=== PATIENT | male | born 1960 | race Caucasian/White ===

== ENCOUNTER → 2017-12-29 14:34 | Outpatient (CLI) | payer OTHER, SELFPAY ==
--- NOTE | 2017-12-29 14:55 | RAD_ITS ---
STUDY: X-RAY - LUMBAR SPINE REASON FOR EXAM: Male, 57 years old. Low back pain TECHNIQUE: 3 view(s) of the lumbar spine were obtained. COMPARISON: 12/23/2013 FINDINGS: Normal lumbar lordosis. There is no substantial scoliosis. There is a normal alignment of the vertebrae. There is multilevel endplate spondylosis of the lumbar vertebrae. There is multi-level degenerative disc disease with multi-level disc space narrowing. There is no demonstrated fracture. The soft tissue structures are unremarkable. RAD/Lumbar Spine 2 or 3 Views IMPRESSION: Degenerative changes of the spine, as detailed above. Electronically Signed: Lul Ontiveros DO at 15:27 EST Tel , Service support ,
== END ==
PROVIDERS: Family Provider Family Medicine Geriatric Medicine; PCP Family Medicine Geriatric Medicine; Visit Provider Family Medicine Geriatric Medicine
DX: M47.896 Other spondylosis, lumbar region (principal); M51.36 Other intervertebral disc degeneration, lumbar region
CPT/HCPCS: 72100

== ENCOUNTER → 2018-10-26 10:42 | Outpatient (CLI) | payer OTHER, SELFPAY ==
[2018-10-26 13:01] LABS: Absolute Lymphocyte Count 1.74 X10^3/ul (0.83-4.51); Absolute Neutrophil Count 2.1 X10^3/uL (2.0-7.7); Basophil# 0.01 X10^3/uL; Basophil% 0.2 % (0-1); Eosinophil# 0.14 X10^3/uL; Eosinophils% 3.1 % (0-5); Hematocrit 39.8 % (40-54); Hemoglobin 12.7 g/dl (13.0-16.5); Lymphocyte # 1.74 X10^3/ul (4.0); Lymphocyte % 38.4 % (19-41); Mean Corp Hgb Conc 31.9 g/gl (32-36); Mean Corpuscular Hgb 30.4 pg (27.0-32.0); Mean Corpuscular Volume 95.2 fL (80-94); Mean Platelet Vol. 9.4 fl (6.2-12.0); Monocyte# 0.54 X10^3/uL; Monocyte% 11.9 % (0-10); Neutrophil # 2.09 X10^3/uL (2.7-7.7); Neutrophil % 46.2 % (47-70); Platelet Count 246 K/mm3 (150-450); RBC Distribution Width SD 44.6 fl (35.1-43.9); Red Blood Count 4.18 M/mm3 (4.6-6.2); White Blood Count 4.5 K/mm3 (4.4-11.0)
[2018-10-26 13:05] LABS: POSITIVE COUNT NO; POSITIVE DIFFERENTIAL NO; POSITIVE MORPHOLOGY NO
[2018-10-26 13:29] LABS: ALB/GLOB Ratio 1.1 RATIO (0.9-2.4); AST(SGOT) 23 U/L (15-37); Alanine Aminotransfer ALT/SGPT 28 U/L (16-61); Albumin, Serum 3.5 g/dL (3.2-5.0); Alkaline Phosphatase 86 U/L (45-117); Anion Gap 11 (5-15); BUN 11 mg/dL (7-18); BUN/Creat Ratio 8.6 RATIO (10-20); Calcium,Total 8.5 mg/dL (8.5-10.1); Chloride 104 mmol/L (98-107); Creatinine, Serum 1.28 mg/dL (0.70-1.30); EST Glomerular Filtration Rate 61 mL/min (>60); Est Glom Filt Rate - Afr Amer 74 mL/min (>60); Globulin 3.2 g/dL (2.2-4.2); Glucose 77 mg/dL (74-106); PSA,Total - Annual Screen 0.77 ng/mL (0.00-4.00); Protein, Total 6.7 g/dL (6.4-8.2); Sodium Level 142 mmol/L (136-145)
== END ==
PROVIDERS: Family Provider Family Medicine Geriatric Medicine; PCP Family Medicine Geriatric Medicine; Visit Provider Family Medicine Geriatric Medicine
DX: I10 Essential (primary) hypertension (principal); Z12.5 Encounter for screening for malignant neoplasm of prostate
CPT/HCPCS: 36415; 80053; 84153; 84443; 85025; G0103

== ENCOUNTER → 2019-11-01 09:27 | Outpatient (CLI) | payer OTHER, SELFPAY ==
[2019-04-23 11:01] VITALS: BMI 28.5
[2019-11-01 12:42] LABS: Absolute Neutrophil Count 4.4 X10^3/uL (2.0-7.7); Basophil# 0.02 X10^3/uL; Basophil% 0.3 % (0-1); Eosinophil# 0.13 X10^3/uL; Eosinophils% 1.8 % (0-5); Hemoglobin 14.7 g/dL (13.0-16.5); Mean Corp Hgb Conc 32.7 g/dL (32-36); Mean Corpuscular Hgb 31.1 pg (27.0-32.0); Mean Corpuscular Volume 95.1 fL (80-94); Mean Platelet Vol. 9.8 fl (6.2-12.0); Monocyte# 0.54 X10^3/uL; Monocyte% 7.7 % (0-10); NRBC Flagged by Analyzer 0 % (0-5); Neutrophil # 4.43 X10^3/uL (2.7-7.7); Neutrophil % 62.9 % (47-70); Platelet Count 254 K/mm3 (150-450); RBC Distribution Width CV 12.6 % (11.6-14.6); Red Blood Count 4.73 M/mm3 (4.6-6.2)
[2019-11-01 12:55] LABS: ALB/GLOB Ratio 1.2 RATIO (0.9-2.4); AST(SGOT) 31 U/L (15-37); Alanine Aminotransfer ALT/SGPT 33 U/L (16-61); Alkaline Phosphatase 86 U/L (45-117); Anion Gap 5 (5-15); BUN 18 mg/dL (7-18); Calcium,Total 9.1 mg/dL (8.5-10.1); Chloride 109 mmol/L (98-107); Creatinine, Serum 1.29 mg/dL (0.70-1.30); EST Glomerular Filtration Rate 60 mL/min (>60); Est Glom Filt Rate - Afr Amer 73 mL/min (>60); Globulin 3.2 g/dL (2.2-4.2); Glucose 93 mg/dL (74-106); PSA,Total - Annual Screen 1.04 ng/mL (0.00-4.00); Potassium 4.7 mmol/L (3.5-5.1); Protein, Total 7.2 g/dL (6.4-8.2); Sodium Level 142 mmol/L (136-145)
== END ==
PROVIDERS: Family Provider Family Medicine Geriatric Medicine; PCP Family Medicine Geriatric Medicine; Visit Provider Family Medicine Geriatric Medicine
DX: I10 Essential (primary) hypertension (principal); Z12.5 Encounter for screening for malignant neoplasm of prostate
CPT/HCPCS: 36415; 80053; 84153; 84443; 85025; G0103

== ENCOUNTER → 2020-06-28 15:00 | Outpatient (CLI) | payer BC, SELFPAY ==
[2020-06-09 13:22] VITALS: BMI 29.3
--- NOTE | 2020-06-28 15:03 | ECHOD_ITS ---
Reason For Study: PHTN Procedure This was a 2D Doppler, Color Flow transthoracic echocardiogram. Exam performed in department. Left Ventricle Normal size and thickness. The estimated ejection fraction is 65 %. Stage 1 diastolic dysfunction. No regional wall motion abnormalities noted. Right Ventricle Normal size and thickness. Normal systolic function. Atria Normal left atrium. Normal right atrium. Normal atrial septum. Mitral Valve The mitral valve is structurally normal. No prolapse or stenosis seen. Mild (1+) mitral valve insufficiency. Tricuspid Valve Normal tricuspid valve. Trivial tricuspid valve insufficiency. Unable to estimate RV systolic pressure due to insufficient tricuspid regurgitant envelope. Aortic Valve Normal aortic valve. Trisinus/trileaflet aortic valve. Pulmonic Valve Normal pulmonic valve. Great Vessels Normal aortic root. Normal arch. Normal inferior vena cava. Inferior vena cava collapse with sniff. Pericardium/Pleural No pericardial effusion. MMode/2D Measurements & Calculations LVIDd: 5.0 cm IVSd: 1.1 cm Ao root diam: 3.7 cm LVIDs: 3.6 cm LVPWd: 1.1 cm RVDd: 2.9 cm FS: 27.7 % LAV(MOD-bp): 73.5 ml LVAd ap4: 36.8 cm2 SV(MOD-sp4): 69.8 ml LAV(MOD-bp) Indexed: 30.7 ml/m2 EDV(MOD-sp4): 126.8 ml LAV(MOD-sp2): 102.4 ml EDV(sp4-el): 132.9 ml LAV(MOD-sp4): 54.0 ml LVAs ap4: 21.8 cm2 ESV(MOD-sp4): 57.0 ml ESV(sp4-el): 58.8 ml EF(MOD-sp4): 55.1 % EF(sp4-el): 55.8 % SV(sp4-el): 74.1 ml LA A4 area: 18.9 cm2 LA dimension(2D): 4.2 cm RA A4 area: 17.1 cm2 Time Measurements MV dec time: 0.12 sec Doppler Measurements & Calculations MV E max amadeo: 43.2 cm/sec Lat Peak E' Amadeo: 8.9 cm/sec Med Peak E' Amadeo: 6.8 cm/sec MV A max amadeo: 44.8 cm/sec E/E' lat: 4.9 E/E' med: 6.4 MV E/A: 0.96 Ao V2 max: 111.7 cm/sec LV V1 max: 106.3 cm/sec PA V2 max: 75.9 cm/sec Ao max P.0 mmHg LV V1 max P.5 mmHg Interpretation Summary The estimated ejection fraction is 65 %. Stage 1 diastolic dysfunction. Mild (1+) mitral valve insufficiency. Trivial tricuspid valve insufficiency. Compared to echo report dated 11/28/2015, no apprecialbe changes noted. Ordering Physician: Cornelius Lea Referring Physician: MARY PEARL Performed By: Melissa Webster, VNICENZO, RVT
== END ==
LOC: CVS 15:03
PROVIDERS: PCP Family Medicine Geriatric Medicine; Referring Provider Internal Medicine Cardiovascular Disease; Visit Provider Internal Medicine Cardiovascular Disease
DX: I27.20 Pulmonary hypertension, unspecified (principal); I45.10 Unspecified right bundle-branch block; I10 Essential (primary) hypertension; E78.5 Hyperlipidemia, unspecified
CPT/HCPCS: 93306

== ENCOUNTER → 2020-11-02 09:30 | Outpatient (CLI) | payer BC, SELFPAY ==
[2020-06-09 13:22] VITALS: BMI 29.3
[2020-11-02 12:45] LABS: Absolute Lymphocyte Count 1.83 X10^3/uL (0.83-4.51); Basophil# 0.03 X10^3/uL; Basophil% 0.5 % (0-1); Eosinophil# 0.11 X10^3/uL; Hematocrit 42.7 % (40-54); Hemoglobin 13.6 g/dL (13.0-16.5); Lymphocyte # 1.83 X10^3/ul (4.0); Mean Corp Hgb Conc 31.9 g/dL (32-36); Mean Corpuscular Hgb 30.6 pg (27.0-32.0); Mean Platelet Vol. 9.3 fl (6.2-12.0); Monocyte# 0.55 X10^3/uL; Monocyte% 9.9 % (0-10); NRBC Flagged by Analyzer 0 % (0-5); Neutrophil # 3.01 X10^3/uL (2.7-7.7); Neutrophil % 54.4 % (47-70); Platelet Count 275 K/mm3 (150-450); RBC Distribution Width CV 12.6 % (11.6-14.6); RBC Distribution Width SD 44.4 fl (35.1-43.9); Red Blood Count 4.45 M/mm3 (4.6-6.2); White Blood Count 5.5 K/mm3 (4.4-11.0)
[2020-11-02 13:14] LABS: ALB/GLOB Ratio 1.2 RATIO (0.9-2.4); AST(SGOT) 28 U/L (15-37); Alanine Aminotransfer ALT/SGPT 40 U/L (16-61); Albumin, Serum 3.8 g/dL (3.2-5.0); Alkaline Phosphatase 90 U/L (45-117); Anion Gap 6 (5-15); BUN 16 mg/dL (7-18); BUN/Creat Ratio 13.6 RATIO (10-20); Calcium,Total 8.7 mg/dL (8.5-10.1); Chloride 108 mmol/L (98-107); Creatinine, Serum 1.18 mg/dL (0.70-1.30); EST Glomerular Filtration Rate 67 mL/min (>60); Est Glom Filt Rate - Afr Amer 81 mL/min (>60); Globulin 3.1 g/dL (2.2-4.2); Glucose 77 mg/dL (74-106); Potassium 3.9 mmol/L (3.5-5.1); Protein, Total 6.9 g/dL (6.4-8.2); Sodium Level 140 mmol/L (136-145); Thyroid Stim Hormone (TSH) 1.28 uIU/mL (0.358-3.74)
== END ==
PROVIDERS: PCP Family Medicine Geriatric Medicine; Visit Provider Family Medicine Geriatric Medicine
DX: I10 Essential (primary) hypertension (principal); Z12.5 Encounter for screening for malignant neoplasm of prostate
CPT/HCPCS: 36415; 80053; 84153; 84443; 85025; G0103

== ENCOUNTER → 2021-11-08 08:51 | Outpatient (CLI) | payer BC, SELFPAY ==
[2021-11-08 12:06] LABS: Absolute Lymphocyte Count 2.25 X10^3/uL (0.83-4.51); Absolute Neutrophil Count 2.8 X10^3/uL (2.0-7.7); Basophil# 0.03 X10^3/uL; Basophil% 0.5 % (0-1); Eosinophil# 0.16 X10^3/uL; Eosinophils% 2.7 % (0-5); Hemoglobin 13.8 g/dL (13.0-16.5); Lymphocyte # 2.25 X10^3/ul (0.83-4.51); Lymphocyte % 38.6 % (19-41); Mean Corp Hgb Conc 32.9 g/dL (32-36); Mean Corpuscular Hgb 31.2 pg (27.0-32.0); Mean Corpuscular Volume 94.8 fL (80-94); Mean Platelet Vol. 9.5 fl (6.2-12.0); Monocyte% 10.3 % (0-10); NRBC Flagged by Analyzer 0 % (0-5); Neutrophil # 2.78 X10^3/uL (2.7-7.7); Neutrophil % 47.7 % (47-70); Platelet Count 298 K/mm3 (150-450); RBC Distribution Width CV 12.8 % (11.6-14.6); Red Blood Count 4.43 M/mm3 (4.6-6.2); White Blood Count 5.8 K/mm3 (4.4-11.0)
[2021-11-08 12:28] LABS: ALB/GLOB Ratio 1.1 RATIO (0.9-2.4); AST(SGOT) 27 U/L (15-37); Alanine Aminotransfer ALT/SGPT 41 U/L (16-61); Albumin, Serum 3.8 g/dL (3.2-5.0); Alkaline Phosphatase 86 U/L (45-117); Anion Gap 5 (5-15); BUN 17 mg/dL (7-18); BUN/Creat Ratio 13.3 RATIO (10-20); Calcium,Total 8.8 mg/dL (8.5-10.1); Chloride 106 mmol/L (98-107); Creatinine, Serum 1.28 mg/dL (0.70-1.30); EST Glomerular Filtration Rate 61 mL/min (>60); Est Glom Filt Rate - Afr Amer 73 mL/min (>60); Globulin 3.6 g/dL (2.2-4.2); Glucose 74 mg/dL (74-106); PSA,Total - Annual Screen 0.85 ng/mL (0.00-4.00); Potassium 4.1 mmol/L (3.5-5.1); Protein, Total 7.4 g/dL (6.4-8.2); Sodium Level 140 mmol/L (136-145); Thyroid Stim Hormone (TSH) 2.03 uIU/mL (0.358-3.74)
== END ==
PROVIDERS: PCP Family Medicine Geriatric Medicine; Visit Provider Family Medicine Geriatric Medicine
DX: I10 Essential (primary) hypertension (principal); Z12.5 Encounter for screening for malignant neoplasm of prostate
CPT/HCPCS: 36415; 80053; 84153; 84443; 85025; G0103

== ENCOUNTER → 2022-12-09 | Outpatient (CLI) | payer MEDICAID, SELFPAY ==
[2022-12-09 17:52] LABS: Absolute Lymphocyte Count 1.78 X10^3/uL (0.83-4.51); Absolute Neutrophil Count 3.6 X10^3/uL (2.0-7.7); Basophil# 0.01 X10^3/uL; Basophil% 0.2 % (0-1); Eosinophil# 0.08 X10^3/uL; Eosinophils% 1.4 % (0-5); Hematocrit 41.8 % (40-54); Hemoglobin 13.5 g/dL (13.0-16.5); Lymphocyte # 1.78 X10^3/ul (0.83-4.51); Lymphocyte % 30.2 % (19-41); Mean Corp Hgb Conc 32.3 g/dL (32-36); Mean Corpuscular Hgb 30.3 pg (27.0-32.0); Mean Corpuscular Volume 93.9 fL (80-94); Mean Platelet Vol. 9.3 fl (6.2-12.0); Monocyte# 0.44 X10^3/uL; Monocyte% 7.5 % (0-10); NRBC Flagged by Analyzer 0 % (0-5); Neutrophil # 3.58 X10^3/uL (2.7-7.7); Neutrophil % 60.5 % (47-70); Platelet Count 269 K/mm3 (150-450); RBC Distribution Width CV 12.7 % (11.6-14.6); RBC Distribution Width SD 43.7 fl (35.1-43.9); Red Blood Count 4.45 M/mm3 (4.6-6.2); White Blood Count 5.9 K/mm3 (4.4-11.0)
[2022-12-09 18:13] LABS: Vitamin D,25 Hydroxy 56.4 ng/mL
[2022-12-09 18:15] LABS: ALB/GLOB Ratio 1.1 RATIO (0.9-2.4); AST(SGOT) 29 U/L (15-37); Alanine Aminotransfer ALT/SGPT 40 U/L (16-61); Albumin, Serum 3.8 g/dL (3.2-5.0); Alkaline Phosphatase 82 U/L (45-117); Anion Gap 5 (5-15); BUN 21 mg/dL (7-18); BUN/Creat Ratio 17.2 RATIO (10-20); Calcium,Total 8.8 mg/dL (8.5-10.1); Chloride 109 mmol/L (98-107); Creatinine, Serum 1.22 mg/dL (0.70-1.30); EST Glomerular Filtration Rate 64 mL/min (>60); Est Glom Filt Rate - Afr Amer 77 mL/min (>60); Globulin 3.4 g/dL (2.2-4.2); Glucose 109 mg/dL (74-106); PSA,Total - Annual Screen 0.98 ng/mL (0.00-4.00); Potassium 3.8 mmol/L (3.5-5.1); Protein, Total 7.2 g/dL (6.4-8.2); Sodium Level 141 mmol/L (136-145); Thyroid Stim Hormone (TSH) 1.12 uIU/mL (0.358-3.74)
== END | disposition home or self-care (01) ==
PROVIDERS: PCP Family Medicine Geriatric Medicine; Visit Provider Family Medicine Geriatric Medicine
DX: I10 Essential (primary) hypertension (principal); Z12.5 Encounter for screening for malignant neoplasm of prostate
CPT/HCPCS: 36415; 80053; 82306; 84153; 84443; 85025; G0103

== ENCOUNTER → 2023-11-14 | Outpatient (CLI) | payer MEDICAID, SELFPAY | END | disposition home or self-care (01) | LOC: PSN 10:34 | PROVIDERS: PCP Family Medicine Geriatric Medicine; Referring Provider Family Medicine Geriatric Medicine; Visit Provider Family Medicine Geriatric Medicine | DX: R68.83 Chills (without fever) (principal) | CPT/HCPCS: 87635; 87804; 87807; C9803 ==

== ENCOUNTER → 2023-12-15 | Outpatient (CLI) | payer MEDICAID, SELFPAY ==
[2023-12-15 15:36] LABS: Absolute Neutrophil Count 3.9 X10^3/uL (2.0-7.7); Basophil# 0.03 X10^3/uL; Basophil% 0.4 % (0-1); Eosinophil# 0.11 X10^3/uL; Eosinophils% 1.6 % (0-5); Hematocrit 43.7 % (40-54); Lymphocyte % 33.1 % (19-41); Mean Corpuscular Hgb 30.7 pg (27.0-32.0); Mean Corpuscular Volume 95.8 fL (80-94); Mean Platelet Vol. 8.9 fl (6.2-12.0); Monocyte# 0.55 X10^3/uL; Monocyte% 7.9 % (0-10); NRBC Flagged by Analyzer 0 % (0-5); Neutrophil # 3.94 X10^3/uL (2.7-7.7); Neutrophil % 56.9 % (47-70); Platelet Count 277 K/mm3 (150-450); RBC Distribution Width CV 12.9 % (11.6-14.6); Red Blood Count 4.56 M/mm3 (4.6-6.2); White Blood Count 6.9 K/mm3 (4.4-11.0)
[2023-12-15 15:58] LABS: ALB/GLOB Ratio 1.1 RATIO (0.9-2.4); AST(SGOT) 21 U/L (15-37); Alanine Aminotransfer ALT/SGPT 24 U/L (16-61); Albumin, Serum 3.7 g/dL (3.2-5.0); Alkaline Phosphatase 86 U/L (45-117); Anion Gap 5 (5-15); BUN 21 mg/dL (7-18); BUN/Creat Ratio 16.3 RATIO (10-20); Calcium,Total 8.9 mg/dL (8.5-10.1); Chloride 108 mmol/L (98-107); Cholesterol 162 mg/dL (200); Creatinine, Serum 1.29 mg/dL (0.70-1.30); EST Glomerular Filtration Rate 60 mL/min (>60); Est Glom Filt Rate - Afr Amer 72 mL/min (>60); Globulin 3.5 g/dL (2.2-4.2); Glucose 137 mg/dL (74-106); High Density Lipoprotein 65 mg/dL; PSA,Total - Annual Screen 1.13 ng/mL (0.00-4.00); Potassium 4.3 mmol/L (3.5-5.1); Protein, Total 7.2 g/dL (6.4-8.2); Sodium Level 141 mmol/L (136-145); Thyroid Stim Hormone (TSH) 1.63 uIU/mL (0.358-3.74); Triglycerides 114 mg/dL; Very Low Density Lipoprotein 23 mg/dL (5-40)
== END | disposition home or self-care (01) ==
LOC: POLAB3 14:51
PROVIDERS: PCP Family Medicine Geriatric Medicine; Visit Provider Family Medicine Geriatric Medicine
DX: I10 Essential (primary) hypertension (principal); E78.5 Hyperlipidemia, unspecified; Z12.5 Encounter for screening for malignant neoplasm of prostate
CPT/HCPCS: 84153; 36415; 80053; 80061; 84443; 85025; G0103

== ENCOUNTER → 2024-11-04 | Outpatient (CLI) | payer MEDICARE, SELFPAY ==
--- NOTE | 2024-11-04 12:44 | ECHOD_ITS ---
Reason For Study: Other ill-defined heart disease Procedure This was a 2D Doppler, Color Flow transthoracic echocardiogram. Exam performed in department. Left Ventricle Mild concentric left ventricular hypertrophy. Normal LV size. The left ventricular ejection fraction is 55 %. Stage 1 diastolic dysfunction. Right Ventricle Normal right ventricle. Atria The left and right atria are normal. Mitral Valve Trivial mitral valve insufficiency. Tricuspid Valve Trivial tricuspid valve insufficiency. Unable to estimate RV systolic pressure due to insufficient tricuspid regurgitant envelope. Aortic Valve Trisinus/trileaflet aortic valve. Pulmonic Valve The pulmonic valve is not well visualized. Great Vessels Normal sized aortic root. Pericardium/Pleural No pericardial effusion. MMode/2D Measurements & Calculations LVIDd: 5.1 cm IVSd: 1.2 cm Ao root diam: 3.9 cm LVIDs: 3.4 cm LVPWd: 0.97 cm RVDd: 4.2 cm FS: 32.3 % LAV(MOD-bp): 57.1 ml LVAd ap4: 34.0 cm2 SV(MOD-sp4): 67.4 ml LAV(MOD-bp) Indexed: 24.8 ml/m2 LVLd ap4: 8.2 cm SI(MOD-sp4): 29.2 ml/m2 LAV(MOD-sp2): 64.9 ml EDV(MOD-sp4): 115.8 ml LAV(MOD-sp4): 50.5 ml EDV(sp4-el): 119.4 ml LVAs ap4: 19.6 cm2 LVLs ap4: 6.6 cm ESV(MOD-sp4): 48.4 ml ESV(sp4-el): 49.9 ml EF(MOD-sp4): 58.2 % EF(sp4-el): 58.2 % SV(sp4-el): 69.5 ml LA A4 area: 19.2 cm2 LA dimension(2D): 4.1 cm RA A4 area: 16.3 cm2 TAPSE: 2.8 cm Time Measurements MV dec time: 0.34 sec Doppler Measurements & Calculations MV E max amadeo: 48.2 cm/sec Lat Peak E' Amadeo: 15.3 cm/sec Med Peak E' Amadeo: 10.2 cm/sec MV A max amadeo: 60.4 cm/sec E/E' lat: 3.2 E/E' med: 4.7 MV E/A: 0.80 MV V2 max: 67.0 cm/sec MV P1/2t max amadeo: 48.7 cm/sec Ao V2 max: 128.6 cm/sec MV max P.8 mmHg MV P1/2t: 97.7 msec Ao max P.6 mmHg MV V2 mean: 36.1 cm/sec Ao V2 mean: 86.7 cm/sec MV mean P.61 mmHg MV dec slope: 145.9 cm/sec2 Ao mean P.5 mmHg MV V2 VTI: 17.9 cm MVA(P1/2t): 2.3 cm2 Ao V2 VTI: 25.4 cm AV (velocity ratio): 0.83 LV V1 max: 105.5 cm/sec MR max amadeo: 487.7 cm/sec PA V2 max: 128.4 cm/sec LV V1 max P.5 mmHg MR max P.1 mmHg PA V2 mean: 90.6 cm/sec LV V1 mean P.4 mmHg LV V1 mean: 71.5 cm/sec LV V1 VTI: 21.1 cm ECHO/Echo Complete Interpretation Summary Mild concentric left ventricular hypertrophy. The left ventricular ejection fraction is 55 %. Stage 1 diastolic dysfunction. Ordering Physician: Jignesh Kasper Referring Physician: Jigensh Kasper Performed By: Curry Villa RCS
== END | disposition home or self-care (01) ==
PROVIDERS: PCP Family Medicine Geriatric Medicine; Referring Provider Internal Medicine Cardiovascular Disease; Visit Provider Internal Medicine Cardiovascular Disease
DX: I51.89 Other ill-defined heart diseases (principal); I34.0 Nonrheumatic mitral (valve) insufficiency
CPT/HCPCS: 93306

== ENCOUNTER → 2024-12-20 | Outpatient (CLI) | payer OTHER, SELFPAY ==
[2024-12-20 15:17] LABS: Absolute Lymphocyte Count 2.23 X10^3/uL (0.83-4.51); Absolute Neutrophil Count 3.6 X10^3/uL (2.0-7.7); Basophil# 0.02 X10^3/uL; Basophil% 0.3 % (0-1); Eosinophils% 1.5 % (0-5); Hemoglobin 13.6 g/dL (13.0-16.5); Lymphocyte # 2.23 X10^3/ul (0.83-4.51); Lymphocyte % 34.5 % (19-41); Mean Corp Hgb Conc 32.4 g/dL (32-36); Mean Corpuscular Hgb 30.4 pg (27.0-32.0); Mean Corpuscular Volume 93.8 fL (80-94); Mean Platelet Vol. 8.9 fl (6.2-12.0); Monocyte# 0.53 X10^3/uL; Monocyte% 8.2 % (0-10); NRBC Flagged by Analyzer 0 % (0-5); Neutrophil # 3.56 X10^3/uL (2.7-7.7); Platelet Count 254 K/mm3 (150-450); RBC Distribution Width CV 12.4 % (11.6-14.6); RBC Distribution Width SD 42.9 fl (35.1-43.9); Red Blood Count 4.48 M/mm3 (4.6-6.2); White Blood Count 6.5 K/mm3 (4.4-11.0)
[2024-12-20 16:04] LABS: ALB/GLOB Ratio 0.9 RATIO (0.9-2.4); AST(SGOT) 22 U/L (15-37); Alanine Aminotransfer ALT/SGPT 25 U/L (16-61); Albumin, Serum 3.5 g/dL (3.2-5.0); Alkaline Phosphatase 87 U/L (45-117); Anion Gap 3 (5-15); BUN 17 mg/dL (7-18); BUN/Creat Ratio 15.3 RATIO (10-20); Calcium,Total 8.8 mg/dL (8.5-10.1); Chloride 108 mmol/L (98-107); Creatinine, Serum 1.11 mg/dL (0.70-1.30); EST Glomerular Filtration Rate 71 mL/min (>60); Est Glom Filt Rate - Afr Amer 85 mL/min (>60); Globulin 3.7 g/dL (2.2-4.2); Glucose 98 mg/dL (74-106); PSA,Total - Annual Screen 0.77 ng/mL (0.00-4.00); Protein, Total 7.2 g/dL (6.4-8.2); Sodium Level 139 mmol/L (136-145)
[2024-12-20 17:53] LABS: Vitamin D,25 Hydroxy 40.8 ng/mL
== END | disposition home or self-care (01) ==
LOC: POLAB3 15:03
PROVIDERS: PCP Family Medicine Geriatric Medicine; Visit Provider Family Medicine Geriatric Medicine
DX: I10 Essential (primary) hypertension (principal); E55.9 Vitamin D deficiency, unspecified; Z12.5 Encounter for screening for malignant neoplasm of prostate
CPT/HCPCS: 36415; 80053; 82306; 84153; 84443; 85025; G0103

== ENCOUNTER → 2025-11-07 | Outpatient (CLI) | payer MEDICARE, SELFPAY ==
--- NOTE | 2025-11-07 06:35 | ECHOD_ITS ---
Reason For Study Reason For Study: ABNORMAL EKG Procedure This was a 2D Doppler, Color Flow transthoracic echocardiogram. Myocardial strain analysis was performed in this exam to aid in the assessment of cardiac function. The patient is in sinus rhythm. Left Ventricle Normal size and thickness. The global longitudinal strain = -17.6 % (normal). The left ventricular ejection fraction is 60 %. Normal diastololic function. Right Ventricle Normal right ventricle. Atria The left and right atria are normal. Mitral Valve Mild (1+) mitral valve insufficiency. Tricuspid Valve Trivial tricuspid valve insufficiency. Normal pulmonary artery pressure. Aortic Valve Trisinus/trileaflet aortic valve. Pulmonic Valve The pulmonic valve is not well visualized. Great Vessels Normal sized aortic root. Pericardium/Pleural No pericardial effusion. MMode/2D Measurements & Calculations LVIDd: 5.2 cm IVSd: 1.1 cm LVOT diam: 2.1 cm LVIDs: 3.4 cm LVPWd: 1.0 cm LVOT area: 3.6 cm2 RVDd: 4.3 cm FS: 35.0 % Ao root diam: 3.8 cm asc Aorta Diam: 3.8 cm LAV(MOD- bp): 65.4 ml LAV(MOD- bp) Indexed: 28.4 ml/m2 LAV(MOD- sp2): 83.5 ml LAV(MOD- sp4): 49.8 ml LVAd ap4: 34.4 cm2 LVAd ap2: 29.0 cm2 EDV(MOD- bp): 106.2 ml LVLd ap4: 9.0 cm LVLd ap2: 8.2 cm ESV(MOD- bp): 49.2 ml EDV(MOD-sp4): 113.5 ml EDV(MOD-sp2): 88.6 ml EF(MOD- bp): 53.7 % EDV(sp4-el): 112.1 ml EDV(sp2-el): 87.5 ml LVAs ap4: 22.0 cm2 LVAs ap2: 18.4 cm2 LVLs ap4: 7.6 cm LVLs ap2: 7.2 cm ESV(MOD-sp4): 55.4 ml ESV(MOD-sp2): 41.0 ml ESV(sp4-el): 54.1 ml ESV(sp2-el): 39.6 ml EF(MOD-sp4): 51.2 % EF(MOD-sp2): 53.7 % EF(sp4-el): 51.7 % SV(MOD-sp4): 58.1 ml SV(MOD-sp2): 47.5 ml SV(sp4- el): 58.0 ml SI(MOD-sp4): 25.2 ml/m2 SI(MOD-sp2): 20.6 ml/m2 Ao sinus diam: 3.[address] Junction: 3.2 cm LA A4 area: 19.4 cm2 LA dimension(2D): 4.4 cm TAPSE: 2.2 cm RA A4 area: 17.5 cm2 Time Measurements MV dec time: 0.30 sec Doppler Measurements & Calculations MV E max amadeo: 55.7 cm/sec Lat Peak E' Amadeo: 11.8 cm/sec Med Peak E' Amadeo: 11.1 cm/sec MV A max amadeo: 53.2 cm/sec E/E' lat: 4.7 E/E' med: 5.0 MV E/A: 1.0 MV dec slope: 183.3 cm/sec2 Ao V2 max: 116.8 cm/sec LV V1 max: 108.0 cm/sec Ao max P.5 mmHg LV V1 max P.7 mmHg Ao V2 mean: 82.0 cm/sec LV V1 mean P.8 mmHg Ao mean P.1 mmHg LV V1 mean: 77.7 cm/sec Ao V2 VTI: 25.0 cm LV V1 VTI: 23.1 cm AV (velocity ratio): 0.92 BUBBA(I,D): 3.3 cm2 BUBBA(V,D): 3.3 cm2 SV(LVOT): 82.2 ml PA V2 max: 110.7 cm/sec TR max amadeo: 207.0 cm/sec TR max P.1 mmHg ECHO/Echo Complete Interpretation Summary The left ventricular ejection fraction is 60 %. The global longitudinal strain = -17.6 % (normal). Mild (1+) mitral valve insufficiency. Ordering Physician: Jignseh Kasper Referring Physician: Gilberto Bautista Chi Performed By: rBiseyda Basurto RDCS
--- OUTSIDE RECORDS SUMMARY | 2025-11-07 06:35 | XMS RPT_ITS | CCD ---
Author Organization [facility] Care Team Providers Care Supervisor Stitching Department Name Role Phone Ted Smith MD Unavailable NONE, NONE Unavailable Unavailable Michele, Gilberto Chi Unavailable RanjithJignesh ferris Attending Unavailable Michele, Gilberto Chi Primary Care Unavailable Ranjith, Jignesh Referring Unavailable RanjithJignesh Attending Unavailable Michele, Gilberto Chi Primary Care Unavailable Michele, Gilberto Chi Attending Unavailable Michele, Gilberto Chi Primary Care Unavailable Ranjith, Jignesh Attending Unavailable Michele, Gilberto Chi Referring Unavailable Michele, Gilberto Chi Primary Care Unavailable Medications Current Medications Medication Drug Class(es) Dates Sig (Normalized) Sig (Original) atorvastatin 10 mg oral tablet (3 sources) HMG-CoA Reductase Inhibitor Start: 03-21-2018 take 10 mg by mouth once daily Atorvastatin Active 10 MG PO daily March 20, 2018 11:00pm take 1 tablet by mouth once norma y Lipitor 40 mg tablet Take 1 tablet by mouth once a day active [facility] 12 hr buPROPion hydrochloride 150 mg extended release oral tablet (3 sources) Aminoketone Start: 06-09-2020 take 150 mg by mouth twice daily Bupropion Hcl Active 150 MG PO TWICE A DAY June 08, 2020 11:00pm take 1 tablet by mouth once norma y bupropion HCl 100 mg tablet Take 1 tablet by mouth once a day active [facility] DULoxetine 60 mg delayed release oral capsule (3 sources) Serotonin and Norepinephrine Reuptake Inhibitor Start: 09-01-2015 take 60 mg by mouth once daily Duloxetine Active 60 MG PO DAILY August 31, 2015 11:00pm take 1 capsule by mouth once madeline ly duloxetine 40 mg capsule,delayed release Take 1 capsule by mouth once a day active Emilia Catracho QUINTANILLA [facility] gabapentin 300 mg oral capsule (4 sources) Anti-epileptic Agent Start: 03-21-2018 End: 03-23-2018 take 300 mg by mouth once daily Gabapentin Active 300 MG PO daily March 23, 2018 1:24pm losartan potassium 100 mg oral tablet (3 sources) Angiotensin 2 Receptor Lashay Start: 09-01-2015 take 100 mg by mouth once daily Losartan Active 100 MG PO DAILY August 31, 2015 11:00pm Completed/Discontinued Medications Medication Drug Class(es) Dates Sig (Normalized) Sig (Original) acetaminophen 325 mg / HYDROcodone bitartrate 5 mg oral tablet (4 sources) Opioid Agonist Start: 09-15-2015 End: 03-21-2018 take 1 tablet by mouth every six hours as needed Hydrocodone-Acetami nophen Discontinued 1 - 2 TABLET PO EVERY 6 HOURS NEEDED September 15, 2015 9:15am March 21, 2018 11:49am Start: 08-02-2015 End: 09-15-2015 take 1 tablet by mouth every four hours as needed Hydrocodone-Acetaminophen Discontinued 1 - 2 TABLET PO EVERY 4 HOURS NEEDED August 01, 2015 11:00pm September 15, 2015 9:15am amLODIPine 5 mg oral tablet (17 sources) Dihydropyridine Calcium Channel Lashay Start: 06-09-2020 End: 12-11-2021 take 5 mg by mouth once daily Amlodipine Discontinued 5 MG PO DAILY November 08, 2021 10:57am December 11, 2021 2:10pm Start: 10-02-2018 End: 04-23-2019 take 2.5 mg by mouth once daily Amlodipine Discontinue d 2.5 MG PO daily October 02, 2018 1:59pm April 23, 2019 10:03am Start: 10-02-2018 End: 10-02-2018 take 2.5 mg by mouth once daily Amlodipine Discontinue d 2.5 MG PO daily October 02, 2018 1:58pm October 02, 2018 1:59pm Start: 03-21-2018 End: 10-02-2018 take 5 mg by mouth once daily Amlodipine Discontinued 5 MG PO daily March 20, 2018 11:00pm October 02, 2018 1:59pm take 1 tablet by kelsy once daily amlodipine 10 mg tablet Take 1 tablet by mouth once a day active Emilia Hayden SOCORRO [facility] amLODIPine 5 mg / benazepril hydrochloride 10 mg oral capsule (2 sources) Dihydropyridine Calcium Channel Lashay, Angiotensin Converting Enzyme Inhibitor Start: 09-01-2015 End: 03-21-2018 Amlodipine-Benazepril Discontinued 1 EACH PO DAILY August 31, 2015 11:00pm March 21, 2018 11:48am aspirin 325 mg oral tablet (2 sources) Platelet Aggregation Inhibitor, Nonsteroidal Anti-inflammatory Drug Start: 09-15-2015 End: 03-21-2018 take 325 mg by mouth twice daily at mealtime Aspirin Discontinued 325 MG PO TWICE DAILY WITH MEALS 60 September 14, 2015 11:00pm March 21, 2018 11:49am meloxicam 15 mg oral tablet (2 sources) Nonsteroidal Anti-inflammatory Drug Start: 09-01-2015 End: 03-21-2018 take 15 mg by mouth once daily Meloxicam Discontinued 15 MG PO DAILY August 31, 2015 11:00pm March 21, 2018 11:50am Problems Active Problems Problem Classification Problem Date Documented Date Episodic/Chronic Conduction disorders (2 sources) Right bundle branch block; Translations: [Unspecified right bundle-branch block] 03-21-2018 Chronic Disorders of lipid metabolism (3 sources) Pure hypercholesterolemia; Translations: [Pure hypercholesterolemia, unspecified] Onset: 10-12-2025 12-08-2020 Chronic Essential hypertension (3 sources) Essential hypertension; Translations: [Essential (primary) hypertension] Onset: 10-12-2025 12-08-2020 Chronic Heart valve disorders (1 source) Nonrheumatic mitral (valve) insufficiency; Translations: [Nonrheumatic mitral (valve) insufficiency] Onset: 10-12-2025 Chronic Other and ill-defined heart disease (1 source) Other ill-defined heart diseases; Translations: [Other ill-defined heart diseases] Onset: 10-12-2025 Chronic Other screening for suspected conditions (not mental disorders or infectious disease) (1 source) Abnormal electrocardiogram [ECG] [EKG]; Translations: [Abnormal electrocardiogram [ECG] [EKG]] Onset: 10-12-2025 Episodic Past or Other Problems Problem Classification Problem Date Documented Da te Episodic/Chronic Residual codes; unclassified (1 source) Encounter for cosmetic surgery; Translations: [Other plastic surgery for unacceptable cosmetic appearance] Onset: 02-02-2025 02-03-2025 Episodic Results Test Name Value Interpretation Reference Range Facility Cardiology Visit Reporton Cardiology Visit Report [facility] [address] [place] [address] OFFICE VISIT Date of Service: 10/12/25 MR#: [id number] Acct: [id number] Name: BHAVIN GARRETT Rep #: [id number] : 1960 Provider: Dr. Jignesh Kasper MD Age/Sex: 65/M Location[place] [facility] [place] Status: Signed HPI HPI History of Present Illness Details: This gentleman with history of diastolic dysfunction without heart failure, dyslipidemia and hypertension is here for follow-up visit. Denies any complaints. No chest pains. No shortness of breath. No palpitations. No orthopnea PND. No ankle edema. Intake Vital Signs 10/11/24 08:12 10/12/25 14:29 Height 6 ft 4 in 6 ft 4 in Weight: 222 lb BMI 27.0 BP 129/79 H Blood Pressure Location Lt brachial Position Sitting Respiration 16 Pulse 80 Pulse Source Monitor Intake Visit Reasons: 1 Y FU Baggage Checker Required: No Accompanied by: Self Is patient in pain?: No Allergies No Known Allergies Allergy (Verified 10/12/25 14:29) Medications ???Medication ???Instructions ???Recorded ???Confirmed ???Type duloxetine 60 mg capsule,delayed 60 mg PO DAILY 09/01/15 10/12/25 H istory release losartan 100 mg tablet 100 mg PO DAILY 09/01/15 10/12/25 History atorvastatin 10 mg tablet 10 mg PO QDAY 03/21/18 10/12/25 Hi story gabapentin 300 mg capsule 300 mg PO QDAY PRN 03/23/18 History bupropion HCl 150 mg tablet,12 hr 150 mg PO BID 06/09/20 10/12/25 H istory sustained-release amlodipine 5 mg tablet 5 mg PO DAILY #90 tabs 12/11/21 Rx Ejection fraction %: 65 Have you fallen in the past year?: No PFSH Medical History (Updated 10/12/25 @ 14:[address] Jignesh Kasper MD) Pure hypercholesterolemia Essential hypertension DDD (degenerative disc disease), lumbar Segmental and somatic dysfunction of pelvic region Segmental and somatic dysfunction of lumbar region Right bundle branch block Surgical History (Updated 10/12/25 @ 14:31 by Nabila Bryan LPN) History of surgery History of right hip replacement Family History Father Dementia Mother Breast cancer Hypertension Brother Diabetes Peripheral vascular disease of extremity with stenting of artery Social History Smoking Status: Former smoker alcohol intake: never substance use type: does not use caffeine: Yes Type: coffee Number of servings: 4 ROS Const Const: Negative for fatigue or weakness Eyes Eyes: Negative for change in vision ENT ENT: Negative for dizziness or balance problems Cardio Chest Pain: No Palpitations: No Edema: None Resp Respiratory: Negative for SOB with activity, SOB at rest or SOB orthopnea SOB lying down GI GI: Negative nausea or heartburn Musc Musc: Negative for balance problems Neuro Neuro: Negative for dizziness, lightheadedness, near syncope, syncope or weakness Endo Endo: Negative for fatigue Cardiology Exam Const Appearance: comfortable and no acute distress Nutritional Appearance: well nourished Neck Neck: no JVD Carotids: Negative bruit Chest Auscultation: Bilateral: Clear to Auscultation Cardio Rate: regular rate Rhythm: regular rhythm Heart sounds: S1 normal and S2 normal Neuro General: patient alert, patient awake and patient oriented x3 Extremities Lower Extremity Edema: None: Bilateral Supplemental Info Supplemental Information Labs: LDL Cholesterol, (0-130) 74 mg/dL HDL Cholesterol, (40-) 65 mg/dL Cholesterol, (200) 162 mg/dL Triglycerides, (-199) 114 mg/dL Diagnostics: Echocardiogram Stress Echocardiogram Past Visits: Cardiology Visit Today Assessment and Plan Assessment and Plan (1) Diastolic dysfunction without heart failure: Status: Chronic Plan: Continue losartan. Blood pressure adequately controlled. Repeat echocardiogram. (2) Essential hypertension: Status: Chronic Plan: Losartan and amlodipine. (3) Mitral regurgitation: Status: Chronic Plan: Repeat echo. (4) Dyslipidemia: Status: Chronic Plan: Atorvastatin. Being followed by PCP. (5) Abnormal ECG: Status: Chronic Plan: History of right bundle branch block on ECG. Patient is worried about low heart rate variability that his smart watch tells him. Counseled. Reassured. He has history of hypertension and diastolic dysfunction. However he remains concerned. Check exercise stress Myoview. Plan Details Goals Barriers: Goals Decrease pain and spasm Improve ROM Barriers DDD Follow Up: 12 Months Coding Level of Care Code Off vis,est,level 4 Diagnoses Diastolic dysfunction without heart failure I51.89 Essential hypertension I10 Mitral (more content not included)... Normal [facility] Relevant diagnostic tests/la boratory data Narrativeon 09-14-2025 Fall risk assessment no IRENE [employer] Work Phone: MEDS REVIEW Done [employer] Work Phone: MEDS REVIEWD Medications reviewed without changes [employer] Work Phone: CBC W/Diff, Automatedon 12-02 Absolute Lymph 2.23 X10 3/uL Normal 0.83-4.51 [facility] Comment on above: Performed By: #### L 501.9520, L100.0100, L500.4050, L501.9910, L506.1000 #### [facility] [address] [place], [address] Absolute Neut 3.6 X10 3/uL Normal 2.0-7.7 [facility] Comment on above: Performed By: #### L [id number], L100.0100, L500.4050, L501.9910, L506.1000 #### [facility] [address] [place], [address] Basophils/100 WBC (Bld) 0.3 % Normal 0-1 [facility] Comment on above: Performed By: #### L [id number], L100.0100, L500.4050, L501.9910, L506.1000 #### [facility] [address] [place], [address] Eosinophils/100 WBC (Bld) 1.5 % Normal 0-5 [facility] Comment on above: Performed By: #### L [id number], L100.0100, L500.4050, L501.9910, L506.1000 #### [facility] [address] [place], [address] Erythrocyte distribution width (RBC) [Ratio] 12.4 % Normal 11.6-14.6 [facility] Comment on above: Performed By: #### L 501.9520, L100.0100, L500.4050, L501.9910, L506.1000 #### [facility] [address] [place], [address] Hematocrit (Bld) [Volume fraction] 42.0 % Normal 40-54 [facility] Comment on above: Performed By: #### L 501.9520, L100.0100, L500.4050, L501.9910, L506.1000 #### [facility] [address] [place], [address] Hemoglobin (Bld) [Mass/Vol] 13.6 g/dL Normal 13.0-16.5 [facility] Comment on above: Performed By: #### L 501.9520, L100.0100, L500.4050, L501.9910, L506.1000 #### [facility] [address] [place], [address] IG% 0.500 Normal 0.0-0.9 [facility] Comment on above: Result Comment: IG% - Immature Granulocytes (promyelocytes, myelocytes and metamyelocytes) > 1% indicates that a LEFT SHIFT is Present. Performed By: #### L 501.9520, L100.0100, L500.4050, L501.9910, L506.1000 #### [facility] [address] [place], [address] Lymphocytes/100 WBC (Bld) 34.5 % Normal 19-41 [facility] Comment on above: Performed By: #### L 501.9520, L100.0100, L500.4050, L501.9910, L506.1000 #### [facility] [address] [place], [address] MCH (RBC) [Entitic mass] 30.4 pg Normal 27.0-32.0 [facility] Comment on above: Performed By: #### L 501.9520, L100.0100, L500.4050, L501.9910, L506.1000 #### [facility] [address] [place], [address] MCHC (RBC) [Mass/Vol] 32.4 g/dL Normal 32-36 [facility] Comment on above: Performed By: #### L [id number], L100.0100, L500.4050, L501.9910, L506.1000 #### [facility] [address] [place], [address] MCV (RBC) [Entitic vol] 93.8 fL Normal 80-94 [place] Comment on above: Performed By: #### L [id number], L100.0100, L500.4050, L501.9910, L506.1000 #### [facility] [address] [place], [address] Monocytes/100 WBC (Bld) 8.2 % Normal 0-10 [place] Comment on above: Performed By: #### L 501.9520, L100.0100, L500.4050, L501.9910, L506.1000 #### [facility] [address] [place], [address] Neutrophils/100 WBC (Bld) 55.0 % Normal 47-70 [facility] Comment on above: Performed By: #### L 501.9520, L100.0100, L500.4050, L501.9910, L506.1000 #### [facility] [address] [place], [address] Nucleated RBC (Bld) [#/Vol] 0 10*3/uL Normal 0-5 [facility] Comment on above: Performed By: #### L 501.9520, L100.0100, L500.4050, L501.9910, L506.1000 #### [facility] [address] [place], [address] Platelet mean volume (Bld) [Entitic vol] 8.9 fL Normal 6.2-12.0 [facility] Comment on above: Performed By: #### L 501.9520, L100.0100, L500.4050, L501.9910, L506.1000 #### [facility] [address] [place], [address] Platelets (Bld) [#/Vol] 254 10*3/uL Normal 150-450 [facility] Comment on above: Performed By: #### L 501.9520, L100.0100, L500.4050, L501.9910, L506.1000 #### [facility] [address] [place], [address] RBC (Bld) [#/Vol] 4.48 10*6/uL Low 4.6-6.2 [facility] Comment on above: Performed By: #### L 501.9520, L100.0100, L500.4050, L501.9910, L506.1000 #### [facility] [address] [place], [address] RDW SD 42.9 fl Normal 35.1-43.9 [facility] Comment on above: Performed By: #### L 501.9520, L100.0100, L500.4050, L501.9910, L506.1000 #### [facility] [address] [place], [address] WBC (Bld) [#/Vol] 6.5 10*3/uL Normal 4.4-11.0 [facility] Comment on above: Performed By: #### L 501.9520, L100.0100, L500.4050, L501.9910, L506.1000 #### [facility] [address] [place], [address] Comprehensive Metabolic Prof ilon 12-20-2024 Albumin [Mass/Vol] 3.5 g/dL Normal 3.2-5.0 [facility] Comment on above: Performed By: #### L 501.9520, L100.0100, L500.4050, L501.9910, L506.1000 #### [facility] [address] [place], [address] Albumin/Globulin [Mass ratio] 0.9 {ratio} Normal 0.9-2.4 [facility] Comment on above: Performed By: #### L 501.9520, L100.0100, L500.4050, L501.9910, L506.1000 #### [facility] [address] [place], [address] ALK P 87 U/L Normal 45-117 [facility] Comment on above: Performed By: #### L 501.9520, L100.0100, L500.4050, L501.9910, L506.1000 #### [facility] [address] [place], [address] ALT [Catalytic activity/Vol] 25 U/L Normal 16-61 [facility] Comment on above: Performed By: #### L 501.9520, L100.0100, L500.4050, L501.9910, L506.1000 #### [facility] [address] [place], [address] AST [Catalytic activity/Vol] 22 U/L Normal 15-37 [facility] Comment on above: Performed By: #### L 501.9520, L100.0100, L500.4050, L501.9910, L506.1000 #### [facility] [address] [place], [address] Bilirubin [Mass/Vol] 0.40 mg/dL Normal 0.20-1.00 [facility] Comment on above: Result Comment: For patients on eltrombopag therapy, use of Dimension [place] TBIL is not recommended. Performed By: #### L 501.9520, L100.0100, L500.4050, L501.9910, L506.1000 #### [facility] [address] [place], [address] BUN/CRE 15.3 RATIO Normal 10-20 [facility] Comment on above: Performed By: #### L 501.9520, L100.0100, L500.4050, L501.9910, L506.1000 #### [facility] [address] [place], [address] CA,Total 8.8 mg/dL Normal 8.5-10.1 [facility] Comment on above: Performed By: #### L 501.9520, L100.0100, L500.4050, L501.9910, L506.1000 #### [facility] [address] [place], [address] Chloride [Moles/Vol] 108 mmol/L High 98-107 [facility] Comment on above: Performed By: #### L 501.9520, L100.0100, L500.4050, L501.9910, L506.1000 #### [facility] [address] [place], [address] CO2 [Moles/Vol] 29.0 mmol/L Normal 21.0-32.0 [facility] Comment on above: Performed By: #### L 501.9520, L100.0100, L500.4050, L501.9910, L506.1000 #### [facility] [address] [place], [address] Creatinine [Mass/Vol] 1.11 mg/dL Normal 0.70-1.30 [facility] Comment on above: Result Comment: The validity of the calculated GFR GFRAA in patients over 70 years has not been determined. Clinical correlation is essential. Performed By: #### L 501.9520, L100.0100, L500.4050, L501.9910, L506.1000 #### [facility] [address] [place], [address] EST GFR - AA 85 mL/min Normal >60 [facility] Comment on above: Result Comment: Afri can [place] GFR Calc Performed By: #### L 501.9520, L100.0100, L500.4050, L501.9910, L506.1000 #### [facility] [address] [place], [address] GAP 3 Low 5-15 [facility] Comment on above: Performed By: #### L 501.9520, L100.0100, L500.4050, L501.9910, L506.1000 #### [facility] [address] [place], [address] GFR/1.73 sq M.predicted among non-blacks MDRD (S/P/Bld) [Vol rate/Area] 71 mL/min/{1.73_m2} Normal >60 [facility] Comment on above: Result Comment: Non- GFR Calc Performed By: #### L 501.9520, L100.0100, L500.4050, L501.9910, L506.1000 #### [facility] [address] [place], [address] Globulin (S) [Mass/Vol] 3.7 g/dL Normal 2.2-4.2 [place] Comment on above: Performed By: #### L 501.9520, L100.0100, L500.4050, L501.9910, L506.1000 #### [facility] [address] [place], [address] Glucose [Mass/Vol] 98 mg/dL Normal 74-106 [facility] Comment on above: Performed By: #### L 501.9520, L100.0100, L500.4050, L501.9910, L506.1000 #### [facility] [address] [place], [address] Potassium [Moles/Vol] 4.0 mmol/L Normal 3.5-5.1 [facility] Comment on above: Performed By: #### L 501.9520, L100.0100, L500.4050, L501.9910, L506.1000 #### [facility] [address] [place], [address] Sodium [Moles/Vol] 139 mmol/L Normal 136-145 [facility] Comment on above: Performed By: #### L 501.9520, L100.0100, L500.4050, L501.9910, L506.1000 #### [facility] [address] [place], [address] T PROT 7.2 g/dL Normal 6.4-8.2 [facility] Comment on above: Performed By: #### L 501.9520, L100.0100, L500.4050, L501.9910, L506.1000 #### [facility] [address] [place], [address] Urea nitrogen [Mass/Vol] 17 mg/dL Normal 7-18 [facility] Comment on above: Performed By: #### L 501.9520, L100.0100, L500.4050, L501.9910, L506.1000 #### [facility] [address] [place], [address] PSA,Total - Annual Screenon 12-20-2024 PSA,TOT SCREEN 0.77 ng/mL Normal 0.00-4.00 [facility] Comment on above: Result Comment: This test was performed using the TPSA assay method for the [employer] chemistry system. Values obtained with different assay methods cannot be used interchangably. When changing PSA assays in the course of monitoring a patient, additional sequential testing should be carried out to confirm baseline values. Performed By: #### L 501.9520, L100.0100, L500.4050, L501.9910, L506.1000 #### [facility] [address] [place], [address] Thyroid Stim Hormone (TSH)on 12-20-2024 TSH 1.620 uIU/mL Normal 0.358-3.740 [facility] Comment on above: Performed By: #### L 501.9520, L100.0100, L500.4050, L501.9910, L506.1000 #### [facility] [address] [place], [address] Vitamin D,25 Hydroxyon 12-20 Vitamin D 25-OH 40.8 ng/mL Normal [facility] Comment on above: Result Comment: Corina min D 25(OH) Status Range Deficiency <20 ng/mL (50nmol/L) Insufficiency 20 - 30 ng/mL (50 - 75 nmol/L) Sufficiency 30 - 100 ng/mL (75 - 250 nmol/L) Toxicity >100 ng/mL (>250 nmol/L) Performed By: #### L 501.9520, L100.0100, L500.4050, L501.9910, L506.1000 #### [facility] [address] [place], [address] Echo Completeon 11-04-2024 Echo Complete [facility] [address] [place] [address] Echo Complete 11/04/24 1251 MR#: [id number] Acct: [id number] Name: BHAVIN GARRETT Rep #: [id number] : [id number] From: Jignesh Kasper MD Attending Dr: Dr. Jignesh Kasper MD Status: REG CLI Ordering Dr: Jignesh Kasper MD Date: 11/04/24 Location: [facility] Sex: M C Admitted: Reason For Study: Other ill-defined heart disease Procedure This was a 2D Doppler, Color Flow transthoracic echocardiogram. Exam performed in department. Left Ventricle Mild concentric left ventricular hypertrophy. Normal LV size. The left ventricular ejection fraction is 55 %. Stage 1 diastolic dysfunction. Right Ventricle Normal right ventricle. Atria The left and right atria are normal. Mitral Valve Trivial mitral valve insufficiency. Tricuspid Valve Trivial tricuspid valve insufficiency. Unable to estimate RV systolic pressure due to insufficient tricuspid regurgitant envelope. Aortic Valve Trisinus/trileaflet aortic valve. Pulmonic Valve The pulmonic valve is not well visualized. Great Vessels Normal sized aortic root. Pericardium/Pleural No pericardial effusion. MMode/2D Measurements Calculations LVIDd: 5.1 cm IVSd: 1.2 cm Ao root diam: 3.9 cm LVIDs: 3.4 cm LVPWd: 0.97 cm RVDd: 4.2 cm FS: 32.3 % LAV(MOD-bp): 57.1 ml LVAd ap4: 34.0 cm2 SV(MOD-sp4): 67.4 ml LAV(MOD-bp) Indexed: 24.8 ml/m2 LVLd ap4: 8.2 cm SI(MOD-sp4): 29.2 ml/m2 LAV(MOD-sp2): 64.9 ml EDV(MOD-sp4): 115.8 ml LAV(MOD-sp4): 50.5 ml EDV(sp4-el): 119.4 ml LVAs ap4: 19.6 cm2 LVLs ap4: 6.6 cm ESV(MOD-sp4): 48.4 ml ESV(sp4-el): 49.9 ml EF(MOD-sp4): 58.2 % EF(sp4-el): 58.2 % SV(sp4-el): 69.5 ml LA A4 area: 19.2 cm2 LA dimension(2D): 4.1 cm RA A4 area: 16.3 cm2 TAPSE: 2.8 cm Time Measurements MV dec time: 0.34 sec Doppler Measurements Calculations MV E max amadeo: 48.2 cm/sec Lat Peak E' Amadeo: 15.3 cm/sec Med Peak E' Amadeo: 10.2 cm/sec MV A max amadeo: 60.4 cm/sec E/E' lat: 3.2 E/E' med: 4.7 MV E/A: 0.80 MV V2 max: 67.0 cm/sec MV P1/2t max amadeo: 48.7 cm/sec Ao V2 max: 128.6 cm/sec MV max P.8 mmHg MV P1/2t: 97.7 msec Ao max P.6 mmHg MV V2 mean: 36.1 cm/sec Ao V2 mean: 86.7 cm/sec MV mean P.61 mmHg MV dec slope: 145.9 cm/sec2 Ao mean P.5 mmHg MV V2 VTI: 17.9 cm MVA(P1/2t): 2.3 cm2 Ao V2 VTI: 25.4 cm AV (velocity ratio): 0.83 LV V1 max: 105.5 cm/sec MR max amadeo: 487.7 cm/sec PA V2 max: 128.4 cm/sec LV V1 max P.5 mmHg MR max P.1 mmHg PA V2 mean: 90.6 cm/sec LV V1 mean P.4 mmHg LV V1 mean: 71.5 cm/sec LV V1 VTI: 21.1 cm ECHO/Echo Complete Interpretation Summary Mild concentric left ventricular hypertrophy. The left ventricular ejection fraction is 55 %. Stage 1 diastolic dysfunction. Ordering Physician: Jignesh Kasper Referring Physician: Jignesh Kasper Performed By: Curry Villa RCS 11/08/24 0750 Date Jignesh Kasper MD CC: Dr. Jignesh Kasper MD; Dr. Gilberto Bautista MD Date Dictated: 11/04/24 1251 Date Transcribed: 11/08/24 0750 [employer]: Signed Normal [facility] Laboratory - Microbiology an d Antimicrobial susceptibilityOrdered By: Gilberto Bautista on 11-14-2023 SARS-CoV-2 (COVID-19) RNA JOEY+probe Ql (Unsp spec) [facility] No Panel InformationOrdered By: Gilberto Bautista on 11-14-2023 Influenza Types A,B Direct FA (CONRAD) [facility] RSV Ag EIAOrdered By: Gilberto zazueta on 11-14-2023 RSV Ag Immune stain Ql (Tiss) [facility] Absolute lymphocyte countOrd ered By: Dr. Bautista on 12-09-2022 Lymphocytes Auto (Unsp spec) [#/Vol] 1.78 10*3/uL 0.83-4.51 [facility] Basophil percentageOrdered B y: Dr. Bautista on 12-09-2022 Basophils/100 WBC (Bld) 0.2 % 0-1 [place] Bilirubin [Mass/Vol] 0.40 mg/dL 0.20-1.00 [facility] Comment on above: For patients on eltr ombopag therapy, use of Dimension [place] TBIL is not recommended. Chloride [Moles/Vol] 109 mmol/L 98-107 [facility] Eosinophils/100 WBC (Bld) 1.4 % 0-5 [facility] Glucose [Mass/Vol] 109 mg/dL 74-106 [facility] Comment on above: Fasting Glucose resu lt from 100 to 125 mg/dL suggests IMPAIRED HOMEOSTASIS per A.D.A. criteria. Neutrophils (Bld) [#/Vol] 3.6 10*3/uL 2.0-7.7 [facility] Neutrophils/100 WBC (Bld) 60.5 % 47-70 [facility] Potassium [Moles/Vol] 3.8 mmol/L 3.5-5.1 [facility] Protein [Mass/Vol] 7.2 g/dL 6.4-8.2 [facility] Sodium [Moles/Vol] 141 mmol/L 136-145 [facility] WBC (Bld) [#/Vol] 5.9 10*3/uL 4.4-11.0 [facility] Blood erythrocytes count (nu mber/volume)Ordered By: Dr. Bautista on 12-09-2022 RBC (Bld) [#/Vol] 4.45 10*6/uL 4.6-6.2 [facility] Blood hemoglobin measurement (mass/volume)Ordered By: Dr. Bautista on 12-09-2022 Hemoglobin (Bld) [Mass/Vol] 13.5 g/dL 13.0-16.5 [facility] Blood lymphocytes/100 leukoc ytesOrdered By: Dr. Bautista on 12-09-2022 Lymphocytes/100 WBC (Bld) 30.2 % 19-41 [facility] Blood monocytes/100 leukocyt esOrdered By: Dr. Bautista on 12-09-2022 Monocytes/100 WBC (Bld) 7.5 % 0-10 [facility] Blood platelet mean volumeOr dered By: Dr. Bautista on 12-09-2022 Platelet mean volume (Bld) [Entitic vol] 9.3 fL 6.2-12.0 [facility] Determination of erythrocyte mean corpuscular volume (MCV)Ordered By: Dr. Bautista on 12-09-2022 MCV (RBC) [Entitic vol] 93.9 fL 80-94 [facility] Hematocrit Auto (Bld) [Volum e fraction]Ordered By: Dr. Bautista on 12-09-2022 Hematocrit (Bld) [Volume fraction] 41.8 % 40-54 [facility] Laboratory - Chemistry and C hemistry - challengeOrdered By: Dr. Bautista on 12-09-2022 ALP [Catalytic activity/Vol] 82 U/L 45-117 [facility] ALT [Catalytic activity/Vol] 40 U/L 16-61 [facility] CO2 [Moles/Vol] 27.0 mmol/L 21.0-32.0 [facility] Globulin (S) [Mass/Vol] 3.4 g/dL 2.2-4.2 [facility] Urea nitrogen/Creatinine [Mass ratio] 17.2 mg/mg 10-20 [facility] Laboratory - Hematology and Cell countsOrdered By: Dr. Bautista on 12-09-2022 Erythrocyte distribution width (RBC) [Entitic vol] 43.7 fL 35.1-43.9 [facility] Erythrocyte distribution width (RBC) [Ratio] 12.7 % 11.6-14.6 [facility] Immature granulocytes/100 WBC (Bld) 0.200 % 0.0-0.9 [facility] Comment on above: IG% - Immature Granu locytes (promyelocytes, myelocytes and metamyelocytes) > 1% indicates that a LEFT SHIFT is Present. MCH (RBC) [Entitic mass] 30.3 pg 27.0-32.0 [facility] Nucleated RBC/100 WBC (Bld) [Ratio] 0 % 0-5 [facility] MCHC Auto (RBC) [Mass/Vol]Or dered By: Dr. Bautista on 12-09-2022 MCHC (RBC) [Mass/Vol] 32.3 g/dL 32-36 [facility] No Panel InformationOrdered By: Dr. Bautista on 12-09-2022 Estimated GFR (MDRD) Amer 77 mL/min >60 [facility] Comment on above: GFR Calc Estimated GFR (MDRD) Non-Af Amer 64 mL/min >60 [facility] Comment on above: Non- GFR Calc Prostate Specific Antigen Screen 0.98 ng/mL 0.00-4.00 [facility] Comment on above: This test was perfor med using the TPSA assay method for the[facility] system. Values obtained with differentassay methods cannot be used interchangably.When changing PSA assays in the course of monitoring apatient, additional sequential testing should be carriedout to confirm baseline values. Thyroid Stimulating Hormone (TSH) 1.12 uIU/mL 0.358-3.74 [facility] Vitamin D 25-Hydroxy 56.4 ng/mL [facility] Comment on above: Vitamin D 25(OH) Sta tus Range Deficiency <20 ng/mL (50nmol/L) Insufficiency 20 - 30 ng/mL (50 - 75 nmol/L) Sufficiency 30 - 100 ng/mL (75 - 250 nmol/L) Toxicity >100 ng/mL (>250 nmol/L) Platelets bldOrdered By: Dr. Bautista on 12-09-2022 Platelets (Bld) [#/Vol] 269 10*3/uL 150-450 [facility] Serum or plasma albumin so urement (mass/volume)Ordered By: Dr. Bautista on 12-09-2022 Albumin [Mass/Vol] 3.8 g/dL 3.2-5.0 [facility] Serum or plasma albumin/glob ulin mass ratioOrdered By: Dr. Bautista on 12-09-2022 Albumin/Globulin [Mass ratio] 1.1 {ratio} 0.9-2.4 [facility] Serum or plasma calcium so urement (mass/volume)Ordered By: Dr. Bautista on 12-09-2022 Calcium [Mass/Vol] 8.8 mg/dL 8.5-10.1 [facility] Serum or plasma creatinine m easurement (mass/volume)Ordered By: Dr. Bautista on 12-09-2022 Creatinine [Mass/Vol] 1.22 mg/dL 0.70-1.30 [facility] Comment on above: The validity of the calculated GFR & GFRAA in patients over 70 years has not been determined. Clinical correlation is essential. Serum or plasma urea nitroge n measurement (mass/volume)Ordered By: Dr. Bautista on 12-09-2022 Urea nitrogen [Mass/Vol] 21 mg/dL 7-18 [facility] Thin prep Papanicolaou smear with manual screeningOrdered By: Dr. Bautista on 12-09-2022 Thin prep Papanicolaou smear with manual screening 29 U/L 15-37 [facility] Thin prep Papanicolaou smear with manual screening 5 5-15 [facility] Vital Signs Date Time Vital Sign Value Performing Clinician Facility 09-14-2025 13:00-0400 Body height 193 cm Ted Smith MD Work Phone: [facility] [employer] [facility] 09-14-2025 13:00-0400 Body height 193.04 cm Ted Smith MD Work Phone: [facility] [employer] [facility] 09-14-2025 13:00-0400 Body mass index (BMI) [Ratio] 27.12 kg/m2 Ted Smith MD Work Phone: [facility] [employer] [facility] 09-14-2025 13:00-0400 Body weight 101 kg Ted Smith MD Work Phone: [facility] [employer] [facility] 09-14-2025 13:00-0400 Body weight 100.7 kg Ted Smith MD Work Phone: [facility] [employer] [facility] 09-14-2025 13:00-0400 BP SITE #1 Ted Smith MD Work Phone: [facility] [employer] [facility] 09-14-2025 13:00-0400 Diastolic blood pressure 86 mm[Hg] Ted Smith MD Work Phone: [facility] [employer] [facility] 09-14-2025 13:00-0400 Heart rate 75 /min Ted Smith MD Work Phone: [facility] [employer] [facility] 09-14-2025 13:00-0400 HGHTCHNVIS Ted Smith MD Work Phone: [facility] [employer] [facility] 09-14-2025 13:00-0400 Systolic blood pressure 130 mm[Hg] Ted mSith MD Work Phone: [facility] [employer] [facility] 09-14-2025 13:00-0400 VITALSDONE Ted Smith MD Work Phone: [facility] [facility] Encounters Encounter Date Encounter Type Care Provider Facility Start: 10-12-2025 End: 10-12-2025 ambulatory Jignesh Ranjith Facility[place] Start: 09-15-2025 Visit out of hours Ted licona MD Work Phone: [facility] Work Phone: Start: 09-14-2025 In-person encounter Ted edward MD Work Phone: [facility] Work Phone: Start: 12-20-2024 End: 12-20-2024 ambulatory Gilberto Chi Michele Facility:[facility] Start: 11-04-2024 ambulatory Jignesh Ranjith Facility:[facility] Start: 11-04-2024 End: 11-04-2024 ambulatory Jignesh Ranjith Facility:[facility] Start: 11-14-2023 End: 11-14-2023 ambulatory [facility] Work Phone: Start: 11-14-2023 End: 11-14-2023 Patient encounter procedure [facility]-Pulmonary Services/Neurology Work Phone: Start: 12-09-2022 End: 12-09-2022 ambulatory [facility] Work Phone: Start: 12-09-2022 End: 12-09-2022 Patient encounter procedure [facility]-Laboratory, Phy Office 3rd Flr Procedures Date Procedure Procedure Detail Performing Clinician Start: 09-15-2025 Blood pressure withi n normal parameters - no follow-up required Ted Smith MD Work Phone: Start: 09-15-2025 BMI outside of regla l parameters - no follow-up plan/reason not given Ted Smith MD Work Phone: Start: 09-15-2025 Current tobacco non- user cad cap copd pv dm Ted Smith MD Work Phone: Start: 09-15-2025 Documentation of cur rent medications Ted Smith MD Work Phone: Start: 09-15-2025 Pain assessment docu mented as negative - follow-up not required Ted Smith MD Work Phone: Start: 11-14-2023 Coronavirus COVID-19 PCR Start: 11-14-2023 Influenza Types A,B Direct FA (CONRAD) Start: 11-14-2023 Respiratory syncytia l virus antigen assay Payers Date Payer Category Payer Private Health Insurance [id number] Self-pay [id number] Medicaid [id number] Private Health Insurance [employer] [id number] [address] Health Insurance [facility] [place] [id number] Unknown [place] [id number] Unknown [facility] [id number] Unknown [id number] Unknown [id number] Unknown [id number] Unknown [id number] Social History Date Type Detail Facility Start: 12-28-2021 End: 04-15-2023 Tobacco smoking status WYIS Unknown if ever smoked [facility] Start: 1960 Sex Assigned At Male [facility] Start: 09-14-2025 [employer] Additional:Fac e: I/C/D/I, , no scar hypertrophy, acute cervicomental angle [employer] Work Phone: Goals Date Patient Goal Desired Activity /State Evaluation note Note Date & Type Note Facility Evaluation note No assessment information availa ble [facility] Work Phone: Family History No Family History Records Found Relationship Condition Age at Onset Recorded Date/T bekah father Dementia Unknown mother Malignant neoplasm of breast Unknown Hypertension Unknown brother Diabetes mellitus Unknown Peripheral vascular disease of extremity Unknown Family Member Condition Father Mother Advance Directives No Advanced Directives Records Found Advance Directive Response Recorded Date/ Time Advance Directives No September 14, 2015 10:46am Living Will No September 14 10:46am Power of Mosaic Layer Yes September 14, 2015 10:46am Chief Complaint and Reason for Visit Chief Complaint Chills (without feve r) Summary Purpose Additional Source Comments Care Teams (unrecognized sec tion and content) Team Status: Active Member Role Status Dates Dr. Gilberto Bautista MD Family Provider Active Dr. Gilberto Bautista MD Primary Care Provider Active Team Status: Inactive Member Role Status Dates Dr. Gilberto Bautista MD Primary Care Provider, Attending Provider Active Team Status: Inactive Member Role Status Dates Dr. Gilberto Bautista MD Primary Care Provi olivia, Attending Provider, Referring Provider Active REASON FOR VISIT (unrecogniz ed section and content) . post Z-plasty neck lift on 05/02/2025, Postop - subsequent visit (unrecognized sect ion and content) No Status Records Found INFORMATION SOURCE (unrecogn ized section and content) DATE CREATED AUTHOR 10/13/2025 [facility] FOR RECORDS PERTAINING TO PATIENTS WHO ARE OR HAVE BEEN ENROLLED IN A CHEMICAL DEPENDENCY/SUBSTANCEABUSE PROGRAM, SOME INFORMATION MAY BE OMITTED. This clinical summary was aggregated from multiple sources. Caution should be exercised in using it in the provision of clinical care. This summary normalizes information from multiple sources, and as a consequence, information in this document may materially change the coding, format and clinical context of patient data. In addition, data may be omitted in some cases. CLINICAL DECISIONS SHOULD BE BASED ON THE PRIMARY CLINICAL RECORDS. [employer] provides no warranty or guarantee of the accuracy or completeness of information in this document.
--- NOTE | 2025-11-08 12:08 | STRESSREP ---
Stress Test Report Date: 11/07/2025 Procedure: Exercise tolerance test/imaging study Indications: Abnormal ECG Consent: Per the patient Procedure: The patient exercised on a Que protocol for 7 minutes and 30 seconds achieving a peak heart rate of 144 bpm (93% predicted maximal heart rate) with a peak blood pressure 172/76 mmHg and a peak MET capacity of 10.1 METs. The baseline ECG demonstrated sinus rhythm with right bundle branch block. The peak exercise ECG did not show any ischemic changes. No significant cardiac dysrhythmias noted. The functional capacity was considered very good. There was no complaint of chest discomfort during exercise or recovery. The examination was discontinued secondary to target heart rate being achieved and dyspnea. The patient was injected with 14.0 mCi of technetium 99m Cardiolite and subsequently rest SPECT Cardiolite nuclear imaging was obtained in the horizontal long, vertical long, and short axis views. Post-exercise, the patient was injected with 42.9 mCi of technetium 99m Cardiolite and subsequently stress SPECT Cardiolite nuclear imaging was obtained in the horizontal long, vertical long, and short axis views. A gated Cardiolite study at peak stress was obtained. Rest and stress SPECT Cardiolite nuclear imaging status post realignment, normalization, and attenuation correction, demonstrates mildly reduced perfusion of the inferior and basal lateral wall post stress. There is end systolic thickening and brightening. The gated Cardiolite study demonstrates myocardial thickening and inward wall motion. The reported LVEF is 56%. Impression: 1. Technically adequate (percent predicted maximal heart rate greater than 85%) exercise tolerance test 2. Peak exercise ECG with no ischemic changes 3. No significant cardiac dysrhythmias 4. Rest and stress SPECT Cardiolite nuclear imaging demonstrate mildly reduced perfusion of the inferolateral wall, suggestive of ischemia. 5. The gated Cardiolite study reports an LVEF of 56%. This note was generated with [employer]hall[employer] software. It may contain incorrect words, spelling, and punctuation that were not noted in checking the note before signing.
== END | disposition home or self-care (01) ==
LOC: CVS 06:33
PROVIDERS: PCP Family Medicine Geriatric Medicine; Referring Provider Internal Medicine Cardiovascular Disease; Visit Provider Internal Medicine Cardiovascular Disease
DX: I34.0 Nonrheumatic mitral (valve) insufficiency (principal); I51.89 Other ill-defined heart diseases; E78.00 Pure hypercholesterolemia, unspecified; I45.10 Unspecified right bundle-branch block; I11.9 Hypertensive heart disease without heart failure; R94.31 Abnormal electrocardiogram [ECG] [EKG]
CPT/HCPCS: 78452; 93017; 93306; A9500; A4216